=== PATIENT | female | born 1970 | race Caucasian/White ===

== ENCOUNTER 2022-02-19 12:56 | Outpatient (CLI) | payer OTHER | END 2022-02-19 12:57 | disposition home or self-care (01) | LOC: BICMAMMO 12:56 | PROVIDERS: ATTEND Nurse Practitioner | DX: Z12.31 Encounter for screening mammogram for malignant neoplasm of breast (principal) | CPT/HCPCS: 77063; 77067 ==

== ENCOUNTER 2023-06-20 15:14 | Observation (INO) | payer BC ==
[2023-06-20 15:35] VITALS: BMI 25.3
[2023-06-20] MEDS ORDERED: Ondansetron ODT 4 MG TAB PO PRN (16:56)
[2023-06-20] MEDS ORDERED: Acetaminophen 650 MG Suppository PR PRN (16:56)
[2023-06-20] MEDS ORDERED: Ondansetron PF 4 MG/2 ML Vial IVP PRN (16:56)
[2023-06-20] MEDS ORDERED: Albuterol 2.5 MG (3 mL) NEB NEB PRN (16:56)
[2023-06-20] MEDS ORDERED: Acetaminophen 325 MG TAB PO PRN (16:56)
[2023-06-20] MEDS ORDERED: Benzonatate 100 MG CAP PO PRN (17:02)
[2023-06-20] MEDS: Ipratropium/Albuterol 3 ML NEB NEB SCH (18:46)
[2023-06-20] MEDS: Amoxicillin/Potassium Clav 875 MG TAB PO SCH (19:58)
[2023-06-20] MEDS: guaiFENesin/DM ER PO SCH (19:58)
[2023-06-21 04:38] LABS: #Basophils 0.1 thou/uL (0.0-0.2); #Neutrophils 15.9 thou/uL (1.40-6.50); %Basophils 0.3 % (0.0-1.0); %Eosinophils 0.1 % (0.0-10.0); %Lymphocytes 6.6 % (21.0-51.0); %Monocytes 5.6 % (0.0-10.0); Hematocrit 49.8 % (36.0-47.0); Hemoglobin 17.1 g/dL (12.0-16.0); Mean Corpuscular HGB CONC 34.3 g/dL (32.0-36.0); Mean Corpuscular Hemoglobin 31.6 pg (27.0-31.0); Mean Corpuscular Volume 92.1 fl (78.0-98.0); Platelet Count 253 10x3/uL (130-400); RBC Distribution Width 11.3 % (11.5-14.5); Red Blood Cell (RBC) Count 5.41 mill/uL (4.20-5.40); White Blood Cell (WBC) Count 18.2 10x3/uL (4.8-10.8)
[2023-06-21 05:07] LABS: Anion Gap 13 mmol/L (10-20); BUN (Urea Nitrogen) 14 mg/dL (9.8-20.1); Calc. Creatinine Clearance 80 mL/min (70-130); Calcium 9.3 mg/dL (7.8-10.44); Carbon Dioxide 24 mmol/L (22-29); Chloride 105 mmol/L (98-107); Estimated GFR 92; Glucose 92 mg/dL (70-105); Potassium 4.3 mmol/L (3.5-5.1); Sodium 138 mmol/L (136-145)
[2023-06-21 08:42] VITALS: BP 119/59; TEMP 98
[2023-06-21] MEDS: predniSONE 20 MG TAB PO SCH (08:53)
[2023-06-21] MEDS: Levothyroxine Sodium 100 MCG TAB PO SCH (08:53)
== END 2023-06-21 11:45 | disposition home or self-care (01) ==
LOC: INTOOBSV 15:14 → 2SW 15:14
PROVIDERS: ADMIT Hospitalist; ATTEND Internal Medicine
DX: J20.9 Acute bronchitis, unspecified (principal); J96.01 Acute respiratory failure with hypoxia; J44.1 Chronic obstructive pulmonary disease with (acute) exacerbation; E03.9 Hypothyroidism, unspecified; F17.210 Nicotine dependence, cigarettes, uncomplicated; Z79.890 Hormone replacement therapy; Z88.8 Allergy status to other drugs, medicaments and biological substances
CPT/HCPCS: 36415; 80048; 85025; 94640; G0378; J7512; J7620